=== PATIENT | female | born 1960 | race Caucasian/White ===

== ENCOUNTER 2019-03-22 12:36 | Outpatient (CLI) | payer OTHER ==
--- NOTE | 2019-03-22 13:13 | ULT ---
Exam: Bilateral renal ultrasound HISTORY: Chronic kidney disease COMPARISON: None FINDINGS: Right kidney: Normal cortical echotexture. No hydronephrosis. Right kidney measurements: 9.3 x 3.7 x 5.1 cm. The right renal cortical thickness is approximately 1. 4 cm. Left kidney: Normal cortical echotexture. No hydronephrosis Left kidney measurements: 8.5 x 4.9 x 6.1 cm. Left renal cortical thickness was approximately 1.4 cm. Urinary bladder: Normal mucosa. IMPRESSION: No focal renal lesion or hydronephrosis demonstrated.
== END 2019-03-22 12:37 | disposition home or self-care (01) ==
LOC: EDBD 12:36 → BICULT 12:36
PROVIDERS: ATTEND Internal Medicine Nephrology
DX: N18.3 Chronic kidney disease, stage 3 (moderate) (principal)
CPT/HCPCS: 76770

== ENCOUNTER 2021-03-26 14:31 | Outpatient (CLI) | payer BC | END 2021-03-26 14:32 | disposition home or self-care (01) | LOC: BICMAMMO 14:31 | PROVIDERS: ATTEND Obstetrics & Gynecology | DX: Z13.820 Encounter for screening for osteoporosis (principal); M81.0 Age-related osteoporosis without current pathological fracture | CPT/HCPCS: 77080 ==